=== PATIENT | male | born 1960 | race African-American/Black ===

== ENCOUNTER 2017-02-17 17:54 | Emergency (ER) | payer SELFPAY ==
[~2017-02-17] VITALS: Ht 177.8 cm; Wt 99.8 kg
[2017-02-17 18:06] VITALS: BP 123/83
--- NOTE | 2017-02-17 18:37 | PHYS DOC ---
Past Medical History Past Medical History: No Pertinent History Past Surgical History: No Surgical History Alcohol Use: Occasionally Drug Use: None Adult General Chief Complaint Chief Complaint: BACK PAIN OR INJURY HPI HPI Patient is a 56 year old male who presents with several hour history of low back pain that occurred after twisting and reaching down the pains moderate severity is worse with movement no numbness or weakness of the lower legs no urinary or fecal incontinence no saddle paresthesia. Occasional prior episodes of minor low back pain but nothing chronic. Denies any abdominal pain nausea vomiting chest pain or shortness of breath. Review of Systems Review of Systems Constitutional: Denies fever or chills [] Eyes: Denies change in visual acuity, redness, or eye pain [] HENT: Denies nasal congestion or sore throat [] Respiratory: Denies cough or shortness of breath [] Cardiovascular: No additional information not addressed in HPI [] GI: Denies abdominal pain, nausea, vomiting, bloody stools or diarrhea [] : Denies dysuria or hematuria [] Musculoskeletal: See history of present illness [] Integument: Denies rash or skin lesions [] Neurologic: Denies headache, focal weakness or sensory changes [] Endocrine: Denies polyuria or polydipsia All systems negative except as noted in the history of present illness [] Allergies Allergies Allergies Coded Allergies Type Severity Reaction Last Updated Verified No Known Drug Allergies 07/01/16 No Physical Exam Physical Exam Constitutional: Well developed, well nourished, no acute distress, non-toxic appearance. [] HENT: Normocephalic, atraumatic, bilateral external ears normal, oropharynx moist, no oral exudates, nose normal. [] Eyes: PERRLA, EOMI, conjunctiva normal, no discharge. [] Neck: Normal range of motion, no tenderness, supple, no stridor. [] Cardiovascular:Heart rate regular rhythm, no murmur [] Lungs & Thorax: Bilateral breath sounds clear to auscultation [] Abdomen: Bowel sounds normal, soft, no tenderness, no masses, no pulsatile masses. [] Skin: Warm, dry, no erythema, no rash. [] Back: Paraspinous tenderness of the lumbar region right greater than left of midline L-spine tenderness, no CVA tenderness. [] Extremities: No tenderness, no cyanosis, no clubbing, ROM intact, no edema. [] Neurologic: Alert and oriented X 3, normal motor function, normal sensory function, no focal deficits noted. 5 out of 5 motor strength lower extremities normal dorsiflexion and great toes extension of the straight-leg raises. 2+ patellar reflexes bilaterally 2+ pulses of the ankle and foot bilaterally. Denies saddle paresthesia [] Psychologic: Affect normal, judgement normal, mood normal. [] Current Patient Data Vital Signs Vital Signs Date Time Temp Pulse Resp B/P (MAP) Pulse Ox O2 Delivery O2 Flow Rate FiO2 02/17/17 18:06 98.2 81 20 123/83 (96) 98 Room Air 98.2 EKG EKG [] Radiology/Procedures Radiology/Procedures [] Course & Med Decision Making Course & Med Decision Making Pertinent Labs and Imaging studies reviewed. (See chart for details) No emergent indication for imaging studies. Patient is neurologically intact with no red flag signs or symptoms. We'll treat symptomatically with pain meds and muscle relaxants. [] Dragon Disclaimer Dragon Disclaimer This electronic medical record was generated, in whole or in part, using a voice recognition dictation system. Departure Departure Referrals: NO PCP (PCP) YANA STRATTON MD Feb 17, 2017 18:37
[2017-02-17] MEDS ORDERED: OXYC-323 PO (18:44)
[2017-02-17] MEDS ORDERED: CARI350T PO (18:44)
[2017-02-17] MEDS ORDERED: CARISOPRODOL 350 MG TABLET PO ONE (19:00)
[2017-02-17] MEDS ORDERED: oxyCODONE/APAP 5/325 1 TAB TABLET PO ONE (19:00)
== END 2017-02-17 19:00 | disposition home or self-care (01) ==
LOC: ER 17:54
DX: M54.5 Low back pain (principal)
CPT/HCPCS: 99283

== ENCOUNTER 2018-08-09 18:10 | Emergency (ER) | payer OTHER ==
[~2018-08-09] VITALS: Ht 170.2 cm; Wt 90.7 kg
[~2018-08-09 18:10] MED LIST: CARI350T PO; OXYC1TAB15 PO
[2018-08-09 18:37] VITALS: BP 142/91
[2018-08-09 19:03] LABS: BILIRUBIN,URINE NEGATIVE (NEG); CLARITY,URINE CLEAR; COLOR,URINE YELLOW; NITRITE,URINE NEGATIVE (NEG); PH,URINE 7.5; PROTEIN,URINE NEGATIVE (NEG-TRACE)
[2018-08-09 19:11] LABS: BACTERIA,URINE 0 /HPF (0-FEW); RBC,URINE 0 /HPF (0-2); SQUAMOUS EPITHELIAL CELL,UR OCC /LPF; WBC,URINE RARE /HPF (0-4)
[2018-08-09] MEDS ORDERED: HYDR-2765 PO (20:08)
--- NOTE | 2018-08-09 20:08 | PHYS DOC ---
Past Medical History Past Medical History: No Pertinent History Past Surgical History: No Surgical History Alcohol Use: Occasionally Drug Use: None Adult General Chief Complaint Chief Complaint: RIB PAIN HPI HPI Patient is a 58 year old male who presents with complaint of left-sided rib pain for the last 2 days. Patient states that one of his coworkers had been pushing a large dumpster and lost control of it and dumpster pinned him in between a metal pole in the dumpster itself. Patient now complains of left- sided rib pain stating that it hurts to breathe and hurts to move into his mid rib region, laterally. He denies any cough, abdominal pain, nausea or vomiting. He rates his pain to be a 9 out of 10 and describes the pain as being sharp and stabbing at times and just aching at other times. He denies any other injuries. Review of Systems Review of Systems Constitutional: Denies fever or chills [] Respiratory: Denies cough or shortness of breath [] Cardiovascular: Complains of left-sided chest wall pain[] GI: Denies abdominal pain, nausea, vomiting or diarrhea [] : Denies hematuria [] Musculoskeletal: Denies back pain or joint pain [] Allergies Allergies Allergies Coded Allergies Type Severity Reaction Last Updated Verified No Known Drug Allergies 07/01/16 No Physical Exam Physical Exam Constitutional: Well developed, well nourished, no acute distress, non-toxic appearance. [] Neck: Normal range of motion, no tenderness, supple, no stridor. [] Cardiovascular: Regular rate and rhythm. There is tenderness to palpation along the left lateral rib margin around ribs 6 and 7 [] Lungs & Thorax: Bilateral breath sounds clear to auscultation [] Abdomen: Bowel sounds normal, soft, no tenderness. [] Back: No spinous point tenderness. [] Current Patient Data Vital Signs Vital Signs Date Time Temp Pulse Resp B/P (MAP) Pulse Ox O2 Delivery O2 Flow Rate FiO2 08/09/18 18:37 98.2 80 18 142/91 (108) 98 Room Air 98.2 Lab Values Laboratory Tests Test 08/09/18 18:50 Urine Collection Type Unknown Urine Color Yellow Urine Clarity Clear Urine pH 7.5 Urine Specific [place] 1.020 Urine Protein Negative mg/dL (NEG-TRACE) Urine Glucose (UA) Negative mg/dL (NEG) Urine Ketones (Stick) Negative mg/dL (NEG) Urine Blood Negative (NEG) Urine Nitrite Negative (NEG) Urine Bilirubin Negative (NEG) Urine Urobilinogen Dipstick 1.0 mg/dL (0.2 mg/dL) Urine Leukocyte Esterase Negative (NEG) Urine RBC 0 /HPF (0-2) Urine WBC Rare /HPF (0-4) Urine Squamous Epithelial Cells Occ /LPF Urine Bacteria 0 /HPF (0-FEW) Urine Mucus Slight /LPF EKG EKG [] Radiology/Procedures Radiology/Procedures [] Impressions: X-ray series of the left ribs demonstrates a mid sixth rib fracture that is mildly displaced. Course & Med Decision Making Course & Med Decision Making Pertinent Labs and Imaging studies reviewed. (See chart for details) [] Dragon Disclaimer Dragon Disclaimer This electronic medical record was generated, in whole or in part, using a voice recognition dictation system. Departure Departure Impression: Primary Impression: Fracture of rib of left side Disposition: HOME, SELF-CARE Condition: STABLE Referrals: NO PCP (PCP) Patient Instructions: Rib Fracture Scripts Hydrocodone Bit/Acetaminophen (HYDROCODONE-APAP 7.5-325 ) 1 Each Tablet 1 TAB PO PRN Q6HRS PRN for PAIN, #15 TAB 0 Refills Prov: MISTY QUIROS Jr. DO 08/09/18 Problem Qualifiers Primary Impression: Fracture of rib of left side Encounter type: initial encounter Rib fracture type: single rib Fracture type: closed Qualified Codes: S22.32XA - Fracture of one rib, left side, initial encounter for closed fracture MISTY QUIROS Jr. DO Aug 09, 2018 20:08
[2018-08-09] MEDS: HYDROcodone/APAP 10/325 1 TAB TABLET PO ONE (20:09)
--- NOTE | 2018-08-09 20:27 | RAD ---
Indication: Trauma TECHNIQUE: AP chest and 3 views of the left ribs COMPARISON: None FINDINGS: Heart is normal in size. Lungs are clear. No pneumothorax or pleural effusion. Mildly displaced fracture is seen of the lateral left sixth rib. IMPRESSION: Mildly displaced left lateral sixth rib fracture. Electronically signed by: Eleazar Amin DO (08/09/2018 8:23 PM) [facility]
== END 2018-08-09 20:18 | disposition home or self-care (01) ==
LOC: ER 18:10
DX: S22.32XA Fracture of one rib, left side, initial encounter for closed fracture (principal); W23.0XXA Caught, crushed, jammed, or pinched between moving objects, initial encounter; Y93.89 Activity, other specified; Y92.69 Other specified industrial and construction area as the place of occurrence of the external cause; Y99.0 Civilian activity done for income or pay
CPT/HCPCS: 71101; 81001; 99284